=== PATIENT | male | born 1950 | race African-American/Black ===

== ENCOUNTER 2022-01-30 16:43 | Inpatient (IN) | payer BC, OTHER ==
[~2022-01-30] VITALS: Ht 188 cm; Wt 82.5 kg
[2022-01-30 18:06] LABS: Basophils # (auto) 0 10 ^3/uL (0-0.2); Basophils % (auto) 0.7 % (0.0-2.0); Eosinophils # (auto) 0 10 ^3/uL (0-0.8); Eosinophils % (auto) 0.6 % (0.0-7.0); Hematocrit 49.5 % (41.0-53.0); Hemoglobin 16.2 g/dL (13.5-17.5); Lymphocytes # (auto) 1.2 10 ^3/uL (0.4-5.4); Lymphocytes % (auto) 20.7 % (10.0-50.0); Mean Corpuscular Hemoglobin 31.4 pg (28.0-32.0); Mean Corpuscular Hgb Conc. 32.8 g/dL (32.0-36.0); Mean Corpuscular Volume 95.8 fL (80.0-100.0); Monocytes # (auto) 0.8 10 ^3/uL (0-1.3); Monocytes % (auto) 13.4 % (0.0-12.0); Neutrophils # (auto) 3.6 10 ^3/uL (1.6-8.6); Neutrophils % (auto) 64.6 % (37.0-80.0); Nucleated Red Blood Cells % 0.3 %; Red Blood Cells 5.17 10^6/uL (4.5-5.90); Red Cell Distribution Width 15.7 % (11.8-14.3); White Blood Cell 5.6 10^3/uL (4.4-10.8)
[2022-01-30 18:18] LABS: BUN/Creatinine Ratio 18.4; Calcium 10.1 mg/dL (8.5-10.1); Potassium 4.6 mmol/L (3.5-5.1)
[2022-01-30 18:21] LABS: Bilirubin, Total 0.7 mg/dL (0.2-1.0); Total Protein 6.3 g/dL (6.4-8.2)
[2022-01-30] MEDS ORDERED: ASPirin 325 MG TAB PO ONE (19:30)
[2022-01-30] MEDS ORDERED: ENOXAPARIN SOD 100 MG/1 ML SYRINGE SC ONE (19:45)
[2022-01-30] MEDS ORDERED: DEXTROSE (50%) 50ML SYRG IV PRN (22:15)
[2022-01-30] MEDS ORDERED: NITROGLYCERIN 0.4 MG SL TAB SL PRN (22:15)
[2022-01-30] MEDS ORDERED: MORPHINE SULFATE INJ 2 MG/ml SYRG IV PRN (22:15)
[2022-01-30] MEDS ORDERED: HYDROcodone-ACET 5/325MG TAB PO PRN (22:15)
[2022-01-30] MEDS ORDERED: hydrALAZINE HCL 10 MG TAB PO PRN (22:15)
[2022-01-30] MEDS ORDERED: ONDANSETRON HCL 4 MG/2 ML VIAL IV PRN (22:15)
[2022-01-30] MEDS ORDERED: ACETAMINOPHEN 325 MG TAB PO PRN (22:15)
[2022-01-30] MEDS: FUROSEMIDE 40 MG/4 ML VIAL IV SCH (23:48)
[2022-01-31 05:57] LABS: Basophils # (auto) 0.1 10 ^3/uL (0-0.2); Eosinophils # (auto) 0.1 10 ^3/uL (0-0.8); Eosinophils % (auto) 2.3 % (0.0-7.0); Hematocrit 49.2 % (41.0-53.0); Hemoglobin 16.2 g/dL (13.5-17.5); Lymphocytes # (auto) 1.4 10 ^3/uL (0.4-5.4); Lymphocytes % (auto) 27.3 % (10.0-50.0); Mean Corpuscular Hemoglobin 31.2 pg (28.0-32.0); Mean Corpuscular Hgb Conc. 32.9 g/dL (32.0-36.0); Mean Corpuscular Volume 94.7 fL (80.0-100.0); Monocytes # (auto) 0.8 10 ^3/uL (0-1.3); Neutrophils # (auto) 2.8 10 ^3/uL (1.6-8.6); Neutrophils % (auto) 53.4 % (37.0-80.0); Nucleated Red Blood Cells % 0.4 %; Red Blood Cells 5.19 10^6/uL (4.5-5.90); Red Cell Distribution Width 15.2 % (11.8-14.3); White Blood Cell 5.3 10^3/uL (4.4-10.8)
[2022-01-31 06:09] LABS: Calcium 9.7 mg/dL (8.5-10.1); Potassium 4.3 mmol/L (3.5-5.1)
[2022-01-31 06:12] LABS: BUN/Creatinine Ratio 19.9
[2022-01-31] MEDS: FUROSEMIDE 40 MG/4 ML VIAL IV SCH ×2 (06:17→18:00)
[2022-01-31] MEDS: ACCU-CHEK COMFORT CURVE STRIP VI SCH ×4 (06:24→21:05)
[2022-01-31] MEDS: InsuLIN REG 1unit/0.01ml Soln (100units/ml) SC SCH ×4 (06:31→21:04)
[2022-01-31 08:50] VITALS: BP 122/86
[2022-01-31] MEDS: ASPirin-EC 81 mg tab PO SCH (09:32)
[2022-01-31] MEDS ORDERED: FAMOTIDINE 20 MG TAB PO SCH (10:00)
[2022-01-31 15:39] VITALS: BP 120/71
[2022-01-31 17:12] VITALS: BP 132/99
[2022-01-31] MEDS ORDERED: ASPI-378 PO (18:24)
[2022-01-31] MEDS ORDERED: CHOL20007 OR (18:24)
[2022-01-31] MEDS ORDERED: METO25TA93 PO (18:24)
[2022-01-31] MEDS ORDERED: SPIR25TA8 PO (18:24)
[2022-01-31] MEDS ORDERED: ATOR40TA52 PO (18:24)
[2022-01-31] MEDS ORDERED: ALBUAER3 IN (18:24)
[2022-01-31] MEDS ORDERED: FURO20TA3 PO (18:24)
[2022-01-31] MEDS ORDERED: FOLITAB22 PO (18:24)
[2022-01-31] MEDS ORDERED: METF-372 PO (18:26)
[2022-01-31 19:43] LABS: Urine Bacteria NONE SEEN /hpf (None Seen); Urine Blood Negative /uL (Negative); Urine Budding Yeast FEW /hpf (None Seen); Urine Specific Gravity 1.014 (1.001-1.035); Urine WBC 18 /hpf (0 - 3)
[2022-01-31] MEDS: ATORVASTATIN 20 MG TAB PO SCH (21:01)
[2022-01-31 22:00] VITALS: BP 114/77
[2022-01-31 22:47] LABS: Protein, Urine 44.7 mg/dL (0.0-11.9)
[2022-02-01 04:30] VITALS: BP 137/82
[2022-02-01] MEDS: FUROSEMIDE 40 MG/4 ML VIAL IV SCH ×2 (06:01→18:00)
[2022-02-01] MEDS: InsuLIN REG 1unit/0.01ml Soln (100units/ml) SC SCH ×4 (06:02→21:49)
[2022-02-01] MEDS: ACCU-CHEK COMFORT CURVE STRIP VI SCH ×4 (06:03→21:50)
[2022-02-01 08:03] LABS: Basophils # (auto) 0 10 ^3/uL (0-0.2); Eosinophils # (auto) 0.1 10 ^3/uL (0-0.8); Eosinophils % (auto) 3.3 % (0.0-7.0); Hematocrit 50.1 % (41.0-53.0); Hemoglobin 16.9 g/dL (13.5-17.5); Lymphocytes # (auto) 1.1 10 ^3/uL (0.4-5.4); Lymphocytes % (auto) 24.6 % (10.0-50.0); Mean Corpuscular Hemoglobin 31.8 pg (28.0-32.0); Mean Corpuscular Hgb Conc. 33.8 g/dL (32.0-36.0); Mean Corpuscular Volume 94.2 fL (80.0-100.0); Monocytes # (auto) 0.6 10 ^3/uL (0-1.3); Neutrophils # (auto) 2.5 10 ^3/uL (1.6-8.6); Neutrophils % (auto) 57.1 % (37.0-80.0); Nucleated Red Blood Cells % 0.3 %; Red Blood Cells 5.32 10^6/uL (4.5-5.90); Red Cell Distribution Width 15.1 % (11.8-14.3); White Blood Cell 4.5 10^3/uL (4.4-10.8)
[2022-02-01 08:16] LABS: BUN/Creatinine Ratio 18.5; Calcium 9.4 mg/dL (8.5-10.1); Potassium 3.6 mmol/L (3.5-5.1)
[2022-02-01 08:31] VITALS: BP 114/71
[2022-02-01] MEDS: ASPirin-EC 81 mg tab PO SCH (10:07)
[2022-02-01 13:00] VITALS: BP 112/69
[2022-02-01 17:00] VITALS: BP 138/69
[2022-02-01] MEDS: ATORVASTATIN 20 MG TAB PO SCH (21:49)
[2022-02-01 22:00] VITALS: BP 117/77
[2022-02-02 04:55] VITALS: BP 97/46
[2022-02-02] MEDS: InsuLIN REG 1unit/0.01ml Soln (100units/ml) SC SCH ×4 (05:51→22:22)
[2022-02-02] MEDS: ACCU-CHEK COMFORT CURVE STRIP VI SCH ×4 (05:51→22:23)
[2022-02-02] MEDS: FUROSEMIDE 40 MG/4 ML VIAL IV SCH ×2 (06:00→17:27)
[2022-02-02 06:24] LABS: Hematocrit 44.2 % (41.0-53.0); Hemoglobin 15.4 g/dL (13.5-17.5); Mean Corpuscular Hemoglobin 32.4 pg (28.0-32.0); Mean Corpuscular Hgb Conc. 34.9 g/dL (32.0-36.0); Mean Corpuscular Volume 92.8 fL (80.0-100.0); Red Blood Cells 4.77 10^6/uL (4.5-5.90); Red Cell Distribution Width 14.8 % (11.8-14.3); White Blood Cell 4.5 10^3/uL (4.4-10.8)
[2022-02-02 06:32] LABS: Calcium 9.3 mg/dL (8.5-10.1); Potassium 3.7 mmol/L (3.5-5.1)
[2022-02-02 06:35] LABS: BUN/Creatinine Ratio 18.9
[2022-02-02 06:54] LABS: Basophils % (manual) 0 (0.0-2.0); Blast Cells 0; Metamyelocytes % 0; Myelocytes % 0; Promyelocytes % 0; Reactive Lymphocytes 0
[2022-02-02 09:00] VITALS: BP 105/68
[2022-02-02] MEDS: ASPirin-EC 81 mg tab PO SCH (09:46)
[2022-02-02 13:00] VITALS: BP 109/68
[2022-02-02 13:19] LABS: Band Neutrophils % (manual) 4; Eosinophils % (manual) 5 (0-7); Lymphocytes % (manual) 34 (10.0-50.0); Monocytes % (manual) 21 (0-12)
[2022-02-02] MEDS ORDERED: FOLITAB22 PO (14:36)
[2022-02-02 17:00] VITALS: BP 111/80
[2022-02-02 20:00] VITALS: BP 110/77
[2022-02-02 22:00] VITALS: BP 110/77
[2022-02-02] MEDS: ATORVASTATIN 20 MG TAB PO SCH (22:16)
[2022-02-03 05:00] VITALS: BP 110/74
[2022-02-03] MEDS: FUROSEMIDE 40 MG/4 ML VIAL IV SCH (06:00)
[2022-02-03] MEDS: InsuLIN REG 1unit/0.01ml Soln (100units/ml) SC SCH ×2 (06:20→12:50)
[2022-02-03] MEDS: ACCU-CHEK COMFORT CURVE STRIP VI SCH ×2 (07:11→12:50)
[2022-02-03 09:00] VITALS: BP 122/71
[2022-02-03] MEDS: ASPirin-EC 81 mg tab PO SCH (10:10)
[2022-02-03 11:13] VITALS: BP 136/78
[2022-02-03 13:00] VITALS: BP 119/77
== END 2022-02-03 14:34 | disposition home health service (06) | DRG 280 ==
LOC: ER 16:43 → TELE 22:26 → TELE-WESTW 01-31 08:58
PROVIDERS: ADMIT Nurse Practitioner Family; ATTEND Internal Medicine
DX: I21.4 Non-ST elevation (NSTEMI) myocardial infarction (principal); I50.23 Acute on chronic systolic (congestive) heart failure; J96.01 Acute respiratory failure with hypoxia; I13.0 Hypertensive heart and chronic kidney disease with heart failure and stage 1 through stage 4 chronic kidney disease, or unspecified chronic kidney disease; N17.9 Acute kidney failure, unspecified; I42.0 Dilated cardiomyopathy; N18.30 Chronic kidney disease, stage 3 unspecified; Z20.822 Contact with and (suspected) exposure to COVID-19; E11.22 Type 2 diabetes mellitus with diabetic chronic kidney disease; D63.1 Anemia in chronic kidney disease; E78.5 Hyperlipidemia, unspecified; F17.200 Nicotine dependence, unspecified, uncomplicated; I34.0 Nonrheumatic mitral (valve) insufficiency; Z83.3 Family history of diabetes mellitus; Z79.84 Long term (current) use of oral hypoglycemic drugs
CPT/HCPCS: 36415; 36600; 71045; 76775; 80048; 80053; 80061; 81001; 82570; 82805; 82962; 83036; 83735; 83880; 84156; 84484; 85007; 85025; 85027; 87426; 87804; 93005; 93306; 96372; 97163; 99291; G0378; J1815